=== PATIENT | female | born 1970 | race Caucasian/White ===

== ENCOUNTER 2018-07-24 14:28 | Emergency (ER) | payer OTHER ==
[~2018-07-24] VITALS: Ht 152.4 cm; Wt 48.6 kg
[~2018-07-24 14:28] MED LIST: NOCURR
[2018-07-24] MEDS ORDERED: LOSA25TA41 PO (14:47)
[2018-07-24] MEDS ORDERED: CYCLOBENZAPRINE HCL 10 MG TABLET PO ONE (16:30)
[2018-07-24] MEDS ORDERED: KETOROLAC TROMETHAMINE 60 MG/2 ML VIAL IM ONE (16:30)
[2018-07-24 16:46] LABS: APPEARANCE,URINE CLEAR (CLEAR); BILIRUBIN,URINE NEGATIVE (NEGATIVE); GLUCOSE, URINE (UA) NEGATIVE (NEGATIVE); KETONES,URINE NEGATIVE (NEGATIVE); LEUKOCYTE ESTERASE ,URINE NEGATIVE (NEGATIVE); NITRATE,URINE NEGATIVE (NEGATIVE); OCCULT BLOOD,URINE MODERATE (NEGATIVE); PH,URINE 7.5 (5.0-8.0); PROTEIN,URINE NEGATIVE (NEGATIVE)
[2018-07-24 17:41] VITALS: BP 145/88
[2018-07-24 17:43] LABS: BACTERIA,URINE None Seen /HPF (None Seen); RBC,URINE 0-2 /HPF (0-2); SQUAMOUS EPITHELIAL CELL,UR Few /LPF (None Seen); WBC,URINE 0-2 /HPF (0-5)
== END 2018-07-24 17:48 | disposition home or self-care (01) ==
LOC: EMS 14:28
DX: M54.5 Low back pain (principal)
CPT/HCPCS: 81001; 96372; 99283; J1885